=== PATIENT | female | born 1985 | race Caucasian/White ===

== ENCOUNTER 2020-06-18 09:43 | Emergency (ER) | payer OTHER ==
--- NOTE | 2020-06-18 09:53 | ED Physician Documentation ---
PD HPI OPHTHO - Stated complaint Stated Complaint: LT EYE REDNESS - Chief complaint Chief Complaint: Heent - History obtained from History obtained from: Patient - History of Present Illness Timing - onset: Today Timing - details: Abrupt onset, Still present Location: Left Quality / character: Burning Associated symptoms: Redness, Swelling, Discharge. No: FB sensation, Decreased vision Contributing factors: No: Exposed to conjunctivitis, Recent URI, FB, Wears contacts Similar symptoms before: Has not had sx before Recently seen: Not recently seen Review of Systems Constitutional: denies: Fever, Chills Eyes: reports: Discharge, Irritation. 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 Derm: Skin cancer surgery - Present Medications Home Medications: Ambulatory Orders Medication Instructions Recorded Confirmed Doxycycline Hyclate [Doryx] 50 mg PO BID 06/18/20 06/18/20 Metronidazole [Metrolotion] 59 ml TP DAILY 06/18/20 06/18/20 Sulfacetamide Sodium [Bleph-10] 3 drops LEFTEYE QID 5 Days #1 06/18/20 bottle Tretinoin Microspheres [Retin-A 50 gm TP ONCE 06/18/20 06/18/20 Micro Pump] - Allergies Allergies/Adverse Reactions: Allergies Allergy/AdvReac Type Severity Reaction Status Date / Time adhesive tape Allergy Rash Verified 06/18/20 09:47 bacitracin Allergy Rash Verified 06/18/20 09:47 [From Neosporin ([id number])] neomycin Allergy Rash Verified 06/18/20 09:47 [From Neosporin ([id number])] polymyxin B Allergy Rash Verified 06/18/20 09:47 [From Neosporin ([id number])] - Social History Does the pt smoke?: No Smoking Status: Never smoker Does the pt drink ETOH?: No Does the pt have substance abuse?: No - Immunizations Immunizations are current?: Yes PD ED PE NORMAL - Vitals Vital signs reviewed: Yes - General General: Alert and oriented X 3, No acute distress, Well developed/nourished - HEENT HEENT: PERRL, EOMI, Other (right eye normal. Left eye with lower conjunctival redness and mild swelling. Purulent material medial canthus. No lumps. No FB noted. ) - Derm Derm: Normal color, Warm and dry Results - Vitals Vitals: Vital Signs - 24 hr 06/18/20 06/18/20 09:48 10:22 Temperature 36.4 C L 36.8 C Heart Rate 57 L 54 L Respiratory 16 14 Rate Blood Pressure 112/65 102/64 O2 Saturation 98 98 Oxygen O2 Source Room air PD MEDICAL DECISION MAKING - ED course Complexity details: considered differential (focal conjunctival symptoms without URI. Presume bacterial. ), d/w patient Departure - Departure Disposition: 01 Home, Self Care Clinical Impression: Acute conjunctivitis of left eye Qualifiers: Acute conjunctivitis type: bacterial Qualified Code(s): H10.32 - Unspecified acute conjunctivitis, left eye Condition: Stable Record reviewed to determine appropriate education?: Yes Instructions: ED Conjunctivitis Bacterial Prescriptions: Sulfacetamide Sodium [Bleph-10] 3 drops LEFTEYE QID 5 Days #1 bottle Comments: Cleanse any drainage gently from the eye several times a day and apply the antibiotic eyedrops as directed. Recheck if not improved over the next 2 to 3 days. Discharge Date/Time: 06/18/20 10:22
[2020-06-18 10:22] VITALS: BP 102/64
== END 2020-06-18 10:22 | disposition home or self-care (01) ==
LOC: ED 09:43
DX: H10.32 Unspecified acute conjunctivitis, left eye (principal)
CPT/HCPCS: 99282; 99283